=== PATIENT | male | born 1935 | race Caucasian/White ===

== ENCOUNTER 2018-09-22 08:30 | Inpatient (IN) | payer BC ==
[~2018-09-22] VITALS: Ht 172.7 cm; Wt 78.5 kg
[~2018-09-22 08:30] MED LIST: LISI-209 PO; METO25TA3 PO; TRI48 PO
[2018-09-22 08:38] VITALS: BP_SYST 127
[2018-09-22] MEDS ORDERED: NACL 0.9% 1,000 ML IV SCH (08:50)
[2018-09-22 09:10] LABS: BASOPHILS % (AUTO) 0.4 % (0.0-2.0); EOSINOPHILS % (AUTO) 0.3 % (0.0-4.0); HEMATOCRIT 35.2 % (36-54); HEMOGLOBIN 11.7 g/dL (14.0-18.0); LYMPHOCYTES # (AUTO) 1.7 K/uL (1.0-5.5); LYMPHOCYTES % (AUTO) 18.4 % (20.5-51.5); MEAN CORPUSCULAR HEMOGLOBIN 30 pg (27-31); MEAN CORPUSCULAR HGB CONC 33 % (32-36); MEAN CORPUSCULAR VOLUME 92 fL (79.0-98.0); MONOCYTES # (AUTO) 0.8 K/uL (0.0-1.0); MONOCYTES % (AUTO) 8.7 % (1.7-9.3); NEUTROPHILS # (AUTO) 6.8 K/uL (1.8-7.7); NEUTROPHILS % (AUTO) 72.2 % (40.0-70.0); PLATELET COUNT (AUTO) 354 K/uL (130-430); RED BLOOD CELL COUNT(AUTO) 3.84 MIL/uL (4.2-6.2); RED CELL DISTRIBUTION WIDTH 14.5 % (9.0-15.0); WHITE BLOOD COUNT (AUTO) 9.4 K/uL (4.8-10.8)
[2018-09-22 09:21] LABS: ANION GAP 13 (5-15); CALCIUM 9.2 mg/dL (8.4-11.0); CHLORIDE 102 mmol/L (98-107); CREATININE 1.68 mg/dL (0.55-1.30); GLUCOSE 148 mg/dL (70-99); POTASSIUM 4.7 mmol/L (3.5-5.1); SODIUM SERUM 135 mmol/L (136-145); UREA NITROGEN, BLOOD 57 mg/dL (8-21)
[2018-09-22 09:25] LABS: INR 1.2 (0.80-1.20); PROTHROMBIN TIME 12.4 SECS (9.5-12.5)
[2018-09-22 09:26] LABS: ALANINE AMINOTRANSFERASE 17 U/L (12-78); ALBUMIN 3.4 g/dL (3.4-4.8); ASPARTATE AMINOTRANSFERASE 14 U/L (10-37); TOTAL BILIRUBIN 0.4 mg/dL (0.0-1.0)
[2018-09-22] MEDS ORDERED: PANTOPRAZOLE SODIUM 40 MG/VIAL (PROTONIX) IVP ONE (11:00)
[2018-09-22] MEDS ORDERED: SPIR25TA PO (11:08)
[2018-09-22] MEDS ORDERED: CLOP300T2 PO (11:08)
[2018-09-22] MEDS ORDERED: METO50TA7 PO (11:08)
[2018-09-22] MEDS ORDERED: LIP10 PO (11:08)
[2018-09-22] MEDS ORDERED: AMLO5TAB4 PO (11:08)
[2018-09-22] MEDS ORDERED: FENO160 PO (11:08)
[2018-09-22] MEDS ORDERED: ASPI-1155 PO (11:08)
[2018-09-22] MEDS ORDERED: LISI40TA4 PO (11:08)
[2018-09-22] MEDS ORDERED: FINA5TAB3 PO (11:08)
[2018-09-22] MEDS ORDERED: PRO40 PO (11:08)
[2018-09-22 12:03] VITALS: BP_SYST 148
[2018-09-22] MEDS: D5NS 1,000 ML IV SCH ×2 (12:32→22:20)
[2018-09-22] MEDS: PANTOPRAZOLE SODIUM 40 MG in NS 50 ML IV SCH ×3 (12:32→20:24)
[2018-09-22 16:13] LABS: HEMATOCRIT 30.5 % (36-54); HEMOGLOBIN 10.1 g/dL (14.0-18.0)
[2018-09-22 16:54] VITALS: BP_SYST 128
[2018-09-22 20:00] VITALS: BP_SYST 154
[2018-09-22 22:04] LABS: HEMATOCRIT 29.2 % (36-54); HEMOGLOBIN 9.8 g/dL (14.0-18.0)
[2018-09-23] MEDS: PANTOPRAZOLE SODIUM 40 MG in NS 50 ML IV SCH ×5 (01:35→21:41)
[2018-09-23 02:07] LABS: HEMATOCRIT 31.4 % (36-54); HEMOGLOBIN 10.5 g/dL (14.0-18.0)
[2018-09-23 03:54] VITALS: BP_SYST 144
[2018-09-23] MEDS: fentaNYL CITRATE/PF 100 MCG/2 ML AMP ONE ×4 (05:57→07:50)
[2018-09-23] MEDS ORDERED: fentaNYL CITRATE/PF 100 MCG/2 ML AMP ONE (05:57)
[2018-09-23] MEDS ORDERED: MIDAZOLAM HCL 5 MG/5 ML VIAL ONE (05:58)
[2018-09-23] MEDS ORDERED: BENZOCAINE 20% 0.5mL UD SPRAY MM ONE (05:58)
[2018-09-23] MEDS: MIDAZOLAM HCL 5 MG/5 ML VIAL ONE ×5 (05:58→07:54)
[2018-09-23] MEDS ORDERED: SIMETHICONE 40 MG/0.6 ML ML ONE (05:59)
[2018-09-23] MEDS: D5NS 1,000 ML IV SCH ×2 (06:25→17:55)
[2018-09-23 08:50] VITALS: BP_SYST 133
[2018-09-23] MEDS: METOPROLOL SUCCINATE 50 MG TAB.SR.24H (TOPROL XL) PO SCH (08:51)
[2018-09-23 08:59] LABS: HEMATOCRIT 29.8 % (36-54); HEMOGLOBIN 9.9 g/dL (14.0-18.0)
[2018-09-23 11:16] VITALS: BP_SYST 156
[2018-09-23 15:23] VITALS: BP_SYST 144
[2018-09-23 15:24] LABS: HEMATOCRIT 29.1 % (36-54); HEMOGLOBIN 9.5 g/dL (14.0-18.0)
[2018-09-23 20:00] VITALS: BP_SYST 133
[2018-09-23 20:24] LABS: HEMATOCRIT 29.9 % (36-54)
[2018-09-24] VITALS: BP_SYST 142
[2018-09-24] MEDS: PANTOPRAZOLE SODIUM 40 MG in NS 50 ML IV SCH ×2 (02:29→08:15)
[2018-09-24] MEDS: D5NS 1,000 ML IV SCH (02:29)
[2018-09-24 02:37] LABS: HEMATOCRIT 27.8 % (36-54); HEMOGLOBIN 9.2 g/dL (14.0-18.0)
[2018-09-24 07:00] LABS: HEMATOCRIT 27.1 % (36-54); HEMOGLOBIN 9.1 g/dL (14.0-18.0); MEAN CORPUSCULAR VOLUME 92 fL (79.0-98.0); RED BLOOD CELL COUNT(AUTO) 2.96 MIL/uL (4.2-6.2)
[2018-09-24 07:01] LABS: BASOPHILS % (AUTO) 0.4 % (0.0-2.0); EOSINOPHILS # (AUTO) 0.1 K/uL (0.0-0.4); EOSINOPHILS % (AUTO) 1.8 % (0.0-4.0); LYMPHOCYTES # (AUTO) 0.9 K/uL (1.0-5.5); LYMPHOCYTES % (AUTO) 19.4 % (20.5-51.5); MEAN CORPUSCULAR HEMOGLOBIN 31 pg (27-31); MEAN CORPUSCULAR HGB CONC 34 % (32-36); MONOCYTES # (AUTO) 0.5 K/uL (0.0-1.0); MONOCYTES % (AUTO) 11.4 % (1.7-9.3); PLATELET COUNT (AUTO) 236 K/uL (130-430); RED CELL DISTRIBUTION WIDTH 14.7 % (9.0-15.0)
[2018-09-24 07:40] VITALS: BP_SYST 148
[2018-09-24 07:51] LABS: WHITE BLOOD COUNT (AUTO) 4.5 K/uL (4.8-10.8)
[2018-09-24 07:55] LABS: ALANINE AMINOTRANSFERASE 15 U/L (12-78); ALBUMIN 2.4 g/dL (3.4-4.8); ANION GAP 8 (5-15); ASPARTATE AMINOTRANSFERASE 10 U/L (10-37); CALCIUM 8.4 mg/dL (8.4-11.0); CHLORIDE 108 mmol/L (98-107); CREATININE 1.25 mg/dL (0.55-1.30); GLUCOSE 116 mg/dL (70-99); PHOSPHORUS 2.6 mg/dL (2.7-4.5); SODIUM SERUM 135 mmol/L (136-145); TOTAL BILIRUBIN 0.4 mg/dL (0.0-1.0); UREA NITROGEN, BLOOD 19 mg/dL (8-21)
[2018-09-24] MEDS: METOPROLOL SUCCINATE 50 MG TAB.SR.24H (TOPROL XL) PO SCH (09:33)
[2018-09-24] MEDS ORDERED: PRO40 PO (10:13)
[2018-09-24 10:51] VITALS: BP_SYST 148
== END 2018-09-24 11:25 | disposition home or self-care (01) ==
LOC: SED 08:30 → SMU 11:08
PROVIDERS: ADMIT Internal Medicine Hospice and Palliative Medicine; ATTEND Internal Medicine Hospice and Palliative Medicine
PROC: 0DJ08ZZ Inspection of Upper Intestinal Tract, Via Natural or Artificial Opening Endoscopic (ICD-10-PCS; principal; 2018-09-23 08:00)
DX: K20.9 Esophagitis, unspecified (principal); K26.4 Chronic or unspecified duodenal ulcer with hemorrhage; I25.10 Atherosclerotic heart disease of native coronary artery without angina pectoris; I10 Essential (primary) hypertension; Z96.649 Presence of unspecified artificial hip joint; E66.9 Obesity, unspecified; D64.9 Anemia, unspecified; Z79.899 Other long term (current) drug therapy; Z95.5 Presence of coronary angioplasty implant and graft; Z90.49 Acquired absence of other specified parts of digestive tract; Z87.11 Personal history of peptic ulcer disease; Z68.26 Body mass index [BMI] 26.0-26.9, adult
CPT/HCPCS: 36415; 43235; 71045; 80053; 82272; 83735-TC; 84100-TC; 85018-TC; 85025; 85610-TC; 85730-TC; 93005; 96361; 96374; 99285; C9113; J2250; J3010; J7030; J7042

== ENCOUNTER 2021-07-24 17:22 | Inpatient (IN) | payer BC, SELFPAY ==
[~2021-07-24] VITALS: Ht 172.7 cm; Wt 78.9 kg
[~2021-07-24 17:22] MED LIST changes: +AMLO5TAB4 PO; +FENO160 PO; +FINA5TAB3 PO; +LIP10 PO; -LISI-209 PO; +LISI40TA13 PO; -METO25TA3 PO; +METO50TA7 PO; +PRO40 PO; +SPIR25TA PO; -TRI48 PO
[2021-07-24 17:50] VITALS: BP_SYST 100
[2021-07-24] MEDS ORDERED: PANTOPRAZOLE SODIUM 40 MG in NS 50 ML IV ONE (18:00)
[2021-07-24] MEDS ORDERED: PANTOPRAZOLE SODIUM 80 MG in NS 100 ML IV ONE (18:00)
[2021-07-24] MEDS ORDERED: APIX2.5T PO (18:24)
[2021-07-24] MEDS ORDERED: HYDR25TA4 PO (18:24)
[2021-07-24 18:53] LABS: HEMATOCRIT 36.2 % (36-54); HEMOGLOBIN 11.9 g/dL (14.0-18.0); MEAN CORPUSCULAR HEMOGLOBIN 28 pg (27-31); MEAN CORPUSCULAR HGB CONC 33 % (32-36); MEAN CORPUSCULAR VOLUME 86 fL (79.0-98.0); PLATELET COUNT (AUTO) 367 K/uL (130-430); RED BLOOD CELL COUNT(AUTO) 4.19 MIL/uL (4.2-6.2); RED CELL DISTRIBUTION WIDTH 14.6 % (9.0-15.0); WHITE BLOOD COUNT (AUTO) 11.6 K/uL (4.8-10.8)
[2021-07-24 18:59] LABS: ANION GAP 10 (5-15); CALCIUM 7.8 mg/dL (8.4-11.0); CHLORIDE 87 mmol/L (98-107); CREATININE 1.69 mg/dL (0.55-1.30); GLUCOSE 120 mg/dL (70-99); INR 1.6 (0.80-1.20); POTASSIUM 4.1 mmol/L (3.5-5.1); PROTHROMBIN TIME 15.4 SECS (9.5-12.5); SODIUM SERUM 120 mmol/L (136-145); UREA NITROGEN, BLOOD 57 mg/dL (8-21)
[2021-07-24] MEDS ORDERED: PANTOPRAZOLE SODIUM 40 MG/VIAL (PROTONIX) ONE ×3 (18:59→19:26)
[2021-07-24 19:04] LABS: ALANINE AMINOTRANSFERASE 19 U/L (12-78); ASPARTATE AMINOTRANSFERASE 19 U/L (10-37); TOTAL BILIRUBIN 0.5 mg/dL (0.0-1.0)
[2021-07-24] MEDS ORDERED: ACETAMINOPHEN 325 MG TABLET PO PRN (19:45)
[2021-07-24] MEDS ORDERED: ONDANSETRON HCL 4 MG/2 ML VIAL IVP PRN (19:45)
[2021-07-24] MEDS ORDERED: ALBUTEROL SULFATE 0.083% 2.5 MG/3 ML VIAL.NEB INH PRN (19:45)
[2021-07-24] MEDS ORDERED: HYDROcodone/ACETAMIN 5-325 MG TAB (NORCO/ VICODIN) PO PRN (19:45)
[2021-07-24] MEDS ORDERED: MORPHINE 2 MG/ML INJ. SYRINGE IVP PRN (20:00)
[2021-07-24 20:18] VITALS: BP_SYST 131
[2021-07-24 20:43] VITALS: BP_SYST 128
[2021-07-24] MEDS: PANTOPRAZOLE SODIUM 40 MG/VIAL (PROTONIX) IVP SCH (21:15)
[2021-07-24] MEDS: FINASTERIDE 5 MG TABLET (PROSCAR) PO SCH (21:20)
[2021-07-25] VITALS: BP_SYST 125
[2021-07-25 07:49] LABS: ALANINE AMINOTRANSFERASE 23 U/L (12-78); ALBUMIN 2.7 g/dL (3.4-4.8); ASPARTATE AMINOTRANSFERASE 27 U/L (10-37); CALCIUM 8.1 mg/dL (8.4-11.0); CREATININE 1.89 mg/dL (0.55-1.30); GLUCOSE 92 mg/dL (70-99); TOTAL BILIRUBIN 0.9 mg/dL (0.0-1.0); UREA NITROGEN, BLOOD 59 mg/dL (8-21)
[2021-07-25 08:00] VITALS: BP_SYST 136
[2021-07-25 08:13] LABS: ANION GAP 15 (5-15); CHLORIDE 86 mmol/L (98-107); POTASSIUM 4.4 mmol/L (3.5-5.1); SODIUM SERUM 122 mmol/L (136-145)
[2021-07-25] MEDS: ATORVASTATIN 10 MG TABLET PO SCH (08:58)
[2021-07-25] MEDS: PANTOPRAZOLE SODIUM 40 MG/VIAL (PROTONIX) IVP SCH ×2 (08:59→21:35)
[2021-07-25] MEDS: METOPROLOL SUCCINATE 50 MG TAB.SR.24H (TOPROL XL) PO SCH (08:59)
[2021-07-25 09:19] LABS: HEMOGLOBIN 12.2 g/dL (14.0-18.0); RED BLOOD CELL COUNT(AUTO) 4.24 MIL/uL (4.2-6.2)
[2021-07-25 09:20] LABS: BASOPHILS % (AUTO) 0.2 % (0.0-2.0); EOSINOPHILS # (AUTO) 0.1 K/uL (0.0-0.4); EOSINOPHILS % (AUTO) 0.9 % (0.0-4.0); HEMATOCRIT 37.1 % (36-54); LYMPHOCYTES # (AUTO) 1.1 K/uL (1.0-5.5); LYMPHOCYTES % (AUTO) 10.1 % (20.5-51.5); MEAN CORPUSCULAR HEMOGLOBIN 29 pg (27-31); MEAN CORPUSCULAR HGB CONC 33 % (32-36); MEAN CORPUSCULAR VOLUME 87 fL (79.0-98.0); MONOCYTES # (AUTO) 1.4 K/uL (0.0-1.0); NEUTROPHILS # (AUTO) 8.4 K/uL (1.8-7.7); NEUTROPHILS % (AUTO) 75.8 % (40.0-70.0); PLATELET COUNT (AUTO) 299 K/uL (130-430); RED CELL DISTRIBUTION WIDTH 14.3 % (9.0-15.0)
[2021-07-25] MEDS: NACL 0.9% 1,000 ML IV SCH ×2 (11:58→23:59)
[2021-07-25 12:00] VITALS: BP_SYST 120
[2021-07-25] MEDS ORDERED: FENOFIBRATE 160 MG TABLET PO ONE (12:00)
[2021-07-25 16:30] VITALS: BP_SYST 120
[2021-07-25 20:00] VITALS: BP_SYST 126
[2021-07-25] MEDS: FINASTERIDE 5 MG TABLET (PROSCAR) PO SCH (21:33)
[2021-07-26] MEDS ORDERED: MIDAZOLAM HCL 5 MG/5 ML VIAL ONE (07:03)
[2021-07-26] MEDS ORDERED: fentaNYL CITRATE/PF 100 MCG/2 ML AMP ONE (07:03)
[2021-07-26 07:43] LABS: INR 1.6 (0.80-1.20)
[2021-07-26 07:45] LABS: ANION GAP 11 (5-15); CALCIUM 7.3 mg/dL (8.4-11.0); CHLORIDE 94 mmol/L (98-107); CREATININE 1.58 mg/dL (0.55-1.30); GLUCOSE 80 mg/dL (70-99); PHOSPHORUS 3.2 mg/dL (2.7-4.5); POTASSIUM 3.9 mmol/L (3.5-5.1); SODIUM SERUM 128 mmol/L (136-145); THYROID STIMULATING HORMONE 0.39 uIu/mL (0.36-3.74); UREA NITROGEN, BLOOD 48 mg/dL (8-21)
[2021-07-26 08:45] VITALS: BP_SYST 122
[2021-07-26 08:55] LABS: BASOPHILS % (AUTO) 0.1 % (0.0-2.0); EOSINOPHILS % (AUTO) 0.3 % (0.0-4.0); HEMATOCRIT 32.4 % (36-54); HEMOGLOBIN 10.8 g/dL (14.0-18.0); LYMPHOCYTES # (AUTO) 0.7 K/uL (1.0-5.5); LYMPHOCYTES % (AUTO) 7.3 % (20.5-51.5); MEAN CORPUSCULAR HEMOGLOBIN 29 pg (27-31); MEAN CORPUSCULAR HGB CONC 33 % (32-36); MEAN CORPUSCULAR VOLUME 87 fL (79.0-98.0); MONOCYTES % (AUTO) 9.9 % (1.7-9.3); NEUTROPHILS # (AUTO) 8.4 K/uL (1.8-7.7); NEUTROPHILS % (AUTO) 82.4 % (40.0-70.0); PLATELET COUNT (AUTO) 252 K/uL (130-430); RED BLOOD CELL COUNT(AUTO) 3.72 MIL/uL (4.2-6.2); RED CELL DISTRIBUTION WIDTH 14.3 % (9.0-15.0); WHITE BLOOD COUNT (AUTO) 10.3 K/uL (4.8-10.8)
[2021-07-26] MEDS: PANTOPRAZOLE SODIUM 40 MG/VIAL (PROTONIX) IVP SCH ×2 (09:22→21:09)
[2021-07-26] MEDS: FENOFIBRATE 160 MG TABLET PO SCH (09:22)
[2021-07-26] MEDS: ATORVASTATIN 10 MG TABLET PO SCH (09:23)
[2021-07-26] MEDS: METOPROLOL SUCCINATE 50 MG TAB.SR.24H (TOPROL XL) PO SCH (09:23)
[2021-07-26 12:00] VITALS: BP_SYST 106
[2021-07-26 16:00] VITALS: BP_SYST 135
[2021-07-26] MEDS: NACL 0.9% 1,000 ML IV SCH (17:59)
[2021-07-26 20:10] VITALS: BP_SYST 127
[2021-07-26] MEDS: FINASTERIDE 5 MG TABLET (PROSCAR) PO SCH (21:09)
[2021-07-27] VITALS: BP_SYST 109
[2021-07-27 07:13] LABS: BASOPHILS % (AUTO) 0.1 % (0.0-2.0); EOSINOPHILS # (AUTO) 0.1 K/uL (0.0-0.4); EOSINOPHILS % (AUTO) 0.9 % (0.0-4.0); HEMATOCRIT 32.1 % (36-54); HEMOGLOBIN 10.7 g/dL (14.0-18.0); LYMPHOCYTES # (AUTO) 1.1 K/uL (1.0-5.5); MEAN CORPUSCULAR HEMOGLOBIN 29 pg (27-31); MEAN CORPUSCULAR HGB CONC 33 % (32-36); MEAN CORPUSCULAR VOLUME 88 fL (79.0-98.0); MONOCYTES # (AUTO) 0.9 K/uL (0.0-1.0); MONOCYTES % (AUTO) 8.9 % (1.7-9.3); NEUTROPHILS # (AUTO) 8.4 K/uL (1.8-7.7); NEUTROPHILS % (AUTO) 80.1 % (40.0-70.0); PLATELET COUNT (AUTO) 258 K/uL (130-430); RED BLOOD CELL COUNT(AUTO) 3.65 MIL/uL (4.2-6.2); RED CELL DISTRIBUTION WIDTH 14.5 % (9.0-15.0); WHITE BLOOD COUNT (AUTO) 10.5 K/uL (4.8-10.8)
[2021-07-27 07:18] LABS: ALANINE AMINOTRANSFERASE 18 U/L (12-78); ALBUMIN 2.2 g/dL (3.4-4.8); ANION GAP 9 (5-15); ASPARTATE AMINOTRANSFERASE 15 U/L (10-37); CALCIUM 7.5 mg/dL (8.4-11.0); CHLORIDE 94 mmol/L (98-107); CREATININE 1.58 mg/dL (0.55-1.30); GLUCOSE 96 mg/dL (70-99); PHOSPHORUS 2.6 mg/dL (2.7-4.5); POTASSIUM 3.8 mmol/L (3.5-5.1); SODIUM SERUM 125 mmol/L (136-145); TOTAL BILIRUBIN 0.4 mg/dL (0.0-1.0); UREA NITROGEN, BLOOD 45 mg/dL (8-21)
[2021-07-27 08:00] VITALS: BP_SYST 106
[2021-07-27] MEDS ORDERED: PRO40 PO (09:30)
[2021-07-27] MEDS: ATORVASTATIN 10 MG TABLET PO SCH (09:49)
[2021-07-27] MEDS: FENOFIBRATE 160 MG TABLET PO SCH (09:49)
[2021-07-27] MEDS: METOPROLOL SUCCINATE 50 MG TAB.SR.24H (TOPROL XL) PO SCH (09:50)
[2021-07-27] MEDS: NACL 0.9% 1,000 ML IV SCH (09:51)
[2021-07-27] MEDS: PANTOPRAZOLE SODIUM 40 MG/VIAL (PROTONIX) IVP SCH (09:54)
[2021-07-27 12:12] VITALS: BP_SYST 106
[2021-07-27 12:38] VITALS: BP_SYST 130
== END 2021-07-27 13:57 | disposition home or self-care (01) | DRG 378 ==
LOC: SED 17:22 → STU 19:36 → SMU 07-26 11:48
PROVIDERS: ADMIT Internal Medicine Hospice and Palliative Medicine; ATTEND Internal Medicine Hospice and Palliative Medicine
PROC: 0DB78ZX Excision of Stomach, Pylorus, Via Natural or Artificial Opening Endoscopic, Diagnostic (ICD-10-PCS; 2021-07-26)
PROC: 0DB98ZX Excision of Duodenum, Via Natural or Artificial Opening Endoscopic, Diagnostic (ICD-10-PCS; principal; 2021-07-26 07:30)
DX: K26.4 Chronic or unspecified duodenal ulcer with hemorrhage (principal); E87.1 Hypo-osmolality and hyponatremia; E44.0 Moderate protein-calorie malnutrition; N17.9 Acute kidney failure, unspecified; I48.20 Chronic atrial fibrillation, unspecified; I11.0 Hypertensive heart disease with heart failure; D64.9 Anemia, unspecified; D72.829 Elevated white blood cell count, unspecified; E78.5 Hyperlipidemia, unspecified; E83.51 Hypocalcemia; E83.52 Hypercalcemia; K21.9 Gastro-esophageal reflux disease without esophagitis; E88.09 Other disorders of plasma-protein metabolism, not elsewhere classified; I25.10 Atherosclerotic heart disease of native coronary artery without angina pectoris; R73.9 Hyperglycemia, unspecified; I48.91 Unspecified atrial fibrillation; N28.89 Other specified disorders of kidney and ureter; Z20.822 Contact with and (suspected) exposure to COVID-19; I50.9 Heart failure, unspecified; R73.03 Prediabetes; Z79.01 Long term (current) use of anticoagulants; Z79.899 Other long term (current) drug therapy; Z68.26 Body mass index [BMI] 26.0-26.9, adult
CPT/HCPCS: 36415; 43239; 71045; 76770; 80048; 80053; 82533; 82941; 83051; 83605; 83735; 83880; 83930; 83935; 84100; 84443; 84484; 85014; 85025; 85048; 85049-TC; 85610-TC; 85730-TC; 86886; 86900; 86901; 87040; 88305; 88312; 88313; 93005; 96374; 96375; 99285; C9113; G0378; J2250; J3010

== ENCOUNTER 2022-05-21 21:33 | Emergency (ER) | payer BC ==
[~2022-05-21] VITALS: Ht 172.7 cm; Wt 74.8 kg
[~2022-05-21 21:33] MED LIST changes: -AMLO5TAB4 PO; +APIX2.5T PO; -SPIR25TA PO
[2022-05-21 21:40] VITALS: BP_SYST 103
[2022-05-21] MEDS ORDERED: NIRM1TAB PO ×3 (23:10→23:23)
[2022-05-21 23:29] VITALS: BP_SYST 107
== END 2022-05-21 23:29 | disposition home or self-care (01) ==
LOC: SED 21:33
DX: U07.1 COVID-19 (principal); R05.9 Cough, unspecified; R50.9 Fever, unspecified; R53.83 Other fatigue; K21.9 Gastro-esophageal reflux disease without esophagitis; I11.0 Hypertensive heart disease with heart failure; I50.9 Heart failure, unspecified; Z79.899 Other long term (current) drug therapy
CPT/HCPCS: 99283

== ENCOUNTER 2023-09-19 18:24 | Inpatient (IN) | payer BC ==
[~2023-09-19] VITALS: Ht 175.3 cm; Wt 90.7 kg
[~2023-09-19 18:24] MED LIST changes: +FINA-37 PO; -FINA5TAB3 PO; +NIRM1TAB PO
[2023-09-19 18:25] VITALS: BP_SYST 106; PULSE 120; RESP 18; TEMP 98.2; O2SAT 100
[2023-09-19 19:33] LABS: ALANINE AMINOTRANSFERASE 24 U/L (12-78); ALBUMIN 2.3 g/dL (3.4-4.8); ANION GAP 10 (5-15); ASPARTATE AMINOTRANSFERASE 16 U/L (10-37); CALCIUM 7.8 mg/dL (8.4-11.0); CARBON DIOXIDE 28 mmol/L (23-29); CHLORIDE 108 mmol/L (98-107); GLUCOSE 151 mg/dL (74-106); POTASSIUM 4.4 mmol/L (3.5-5.1); SODIUM SERUM 146 mmol/L (136-145); TOTAL BILIRUBIN 0.9 mg/dL (0.0-1.0); TOTAL PROTEIN, SERUM 5.1 g/dL (6.4-8.3); UREA NITROGEN, BLOOD 90 mg/dL (8-21)
[2023-09-19 19:34] LABS: INR 1.6 (0.80-1.20); PROTHROMBIN TIME 16.3 SECS (9.5-12.5)
[2023-09-19 19:35] LABS: BASOPHILS % (AUTO) 0.2 % (0.0-2.0); HEMOGLOBIN 7.3 g/dL (14.0-18.0); LYMPHOCYTES # (AUTO) 1.2 K/uL (1.0-5.5); LYMPHOCYTES % (AUTO) 13.8 % (20.5-51.5); MEAN CORPUSCULAR HEMOGLOBIN 31 pg (27-31); MEAN CORPUSCULAR HGB CONC 34 % (32-36); MEAN CORPUSCULAR VOLUME 94 fL (79.0-98.0); MONOCYTES # (AUTO) 0.7 K/uL (0.0-1.0); MONOCYTES % (AUTO) 8.6 % (1.7-9.3); NEUTROPHILS # (AUTO) 6.7 K/uL (1.8-7.7); NEUTROPHILS % (AUTO) 77.4 % (40.0-70.0); PLATELET COUNT (AUTO) 233 K/uL (130-430); RED BLOOD CELL COUNT(AUTO) 2.34 MIL/uL (4.2-6.2); RED CELL DISTRIBUTION WIDTH 15.4 % (9.0-15.0); WHITE BLOOD COUNT (AUTO) 8.6 K/uL (4.8-10.8)
[2023-09-19 19:36] LABS: BILIRUBIN,DIRECT 0.4 mg/dL (0.0-0.3); CREATINE KINASE, TOTAL 25 U/L (39-308)
[2023-09-19 19:41] LABS: HEMATOCRIT 21.9 % (36-54)
[2023-09-19] MEDS: DILTIAZEM HCL 60 MG TABLET PO ONE (20:00)
[2023-09-19] MEDS: dilTIAZem HCL IVP 5 MG/ML VIAL IVP ONE (20:01)
[2023-09-19] MEDS: NACL 0.9% 1,000 ML IV ONE ×2 (20:02→22:02)
[2023-09-19] MEDS ORDERED: HYDROcodone/ACETAMIN 10-325 MG TAB PO PRN (21:45)
[2023-09-19] MEDS ORDERED: ACETAMINOPHEN 325 MG TABLET PO PRN (21:45)
[2023-09-19] MEDS ORDERED: MORPHINE 2 MG/ML INJ. SYRINGE IVP PRN (21:45)
[2023-09-19] MEDS ORDERED: HYDROcodone/ACETAMIN 5-325 MG TAB (NORCO/ VICODIN) PO PRN (21:45)
[2023-09-19] MEDS ORDERED: IPRATROPIUM BROM 0.5 MG/2.5 ML VIAL.NEB (ATROVENT) INH PRN (21:45)
[2023-09-19 21:55] LABS: BILIRUBIN,URINE NEGATIVE (NEGATIVE); BLOOD, URINE NEGATIVE (NEGATIVE); CLARITY/URINE CLEAR (CLEAR); COLOR,URINE YELLOW (YELLOW); GLUCOSE,URINE NEGATIVE (NEGATIVE); KETONES,URINE NEGATIVE (NEGATIVE); LEUKOCYTE ESTERASE ,URINE NEGATIVE (NEGATIVE); NITRITE, URINE NEGATIVE (NEGATIVE); PROTEIN URINE NEGATIVE (NEGATIVE); UROBILINOGEN,URINE 0.2 (0.2-1.0)
[2023-09-20] VITALS (14 sets, daily range): BP systolic 93–122; PULSE 78–103; RESP 20–28; TEMP 97.2–97.4; O2SAT 5–98
[2023-09-20] MEDS: ONDANSETRON HCL 4 MG/2 ML VIAL IVP PRN (01:20)
[2023-09-20 04:14] LABS: BASOPHILS % (AUTO) 0.2 % (0.0-2.0); LYMPHOCYTES % (AUTO) 10.5 % (20.5-51.5); MEAN CORPUSCULAR HEMOGLOBIN 32 pg (27-31); MEAN CORPUSCULAR HGB CONC 34 % (32-36); MEAN CORPUSCULAR VOLUME 94 fL (79.0-98.0); MONOCYTES # (AUTO) 0.8 K/uL (0.0-1.0); MONOCYTES % (AUTO) 8.3 % (1.7-9.3); NEUTROPHILS # (AUTO) 7.6 K/uL (1.8-7.7); PLATELET COUNT (AUTO) 201 K/uL (130-430); RED BLOOD CELL COUNT(AUTO) 2.06 MIL/uL (4.2-6.2); RED CELL DISTRIBUTION WIDTH 15.4 % (9.0-15.0); WHITE BLOOD COUNT (AUTO) 9.4 K/uL (4.8-10.8)
[2023-09-20] MEDS ORDERED: NOREPINEPHRINE BITARTRATE 4 MG in D5W 246 ML IV PRN (04:15)
[2023-09-20 04:17] LABS: HEMATOCRIT 19.4 % (36-54); HEMOGLOBIN 6.5 g/dL (14.0-18.0)
[2023-09-20] MEDS ORDERED: OCTREOTIDE ACETATE 1,250 MCG in NS 248.75 ML IV SCH (04:30)
[2023-09-20 04:39] LABS: ALANINE AMINOTRANSFERASE 19 U/L (12-78); ALBUMIN 1.8 g/dL (3.4-4.8); ANION GAP 9 (5-15); ASPARTATE AMINOTRANSFERASE 14 U/L (10-37); CARBON DIOXIDE 26 mmol/L (23-29); CHLORIDE 113 mmol/L (98-107); CREATININE 1.55 mg/dL (0.55-1.30); GLUCOSE 135 mg/dL (74-106); POTASSIUM 4.3 mmol/L (3.5-5.1); SODIUM SERUM 148 mmol/L (136-145); TOTAL BILIRUBIN 0.7 mg/dL (0.0-1.0); TOTAL PROTEIN, SERUM 4.1 g/dL (6.4-8.3); UREA NITROGEN, BLOOD 96 mg/dL (8-21)
[2023-09-20] MEDS ORDERED: PANTOPRAZOLE SODIUM 40 MG/VIAL (PROTONIX) ONE ×2 (05:06→09:47)
[2023-09-20] MEDS: PANTOPRAZOLE SODIUM 40 MG in NS 50 ML IV ONE (05:43)
[2023-09-20 06:07] LABS: HEMOGLOBIN A1C 5.79 % (<5.7)
[2023-09-20 08:26] LABS: BASOPHILS % (AUTO) 0.2 % (0.0-2.0); HEMATOCRIT 24.4 % (36-54); HEMOGLOBIN 8.1 g/dL (14.0-18.0); LYMPHOCYTES # (AUTO) 0.8 K/uL (1.0-5.5); LYMPHOCYTES % (AUTO) 8.8 % (20.5-51.5); MEAN CORPUSCULAR HEMOGLOBIN 32 pg (27-31); MEAN CORPUSCULAR HGB CONC 33 % (32-36); MEAN CORPUSCULAR VOLUME 95 fL (79.0-98.0); MONOCYTES # (AUTO) 0.9 K/uL (0.0-1.0); MONOCYTES % (AUTO) 9.6 % (1.7-9.3); NEUTROPHILS # (AUTO) 7.6 K/uL (1.8-7.7); NEUTROPHILS % (AUTO) 81.4 % (40.0-70.0); PLATELET COUNT (AUTO) 192 K/uL (130-430); RED BLOOD CELL COUNT(AUTO) 2.56 MIL/uL (4.2-6.2); WHITE BLOOD COUNT (AUTO) 9.4 K/uL (4.8-10.8)
[2023-09-20] MEDS ORDERED: METOPROLOL SUCCINATE 50 MG TAB.SR.24H (TOPROL XL) PO SCH (09:00)
[2023-09-20 09:16] LABS: INFLUENZA TYPE A Negative (NEGATIVE); INFLUENZA TYPE B NEGATIVE (NEGATIVE)
[2023-09-20] MEDS: PANTOPRAZOLE SODIUM 40 MG in NS 50 ML IV SCH (09:53)
[2023-09-20] MEDS: PHYTONADIONE 10 MG/ML AMP SUBCUT ONE (12:17)
[2023-09-20] MEDS: ATORVASTATIN 10 MG TABLET PO SCH (12:17)
[2023-09-20] MEDS: OCTREOTIDE ACETATE 1,250 MCG in NS 248.75 ML IV SCH (12:18)
[2023-09-20] MEDS: NACL 0.9% 1,000 ML IV SCH (12:21)
[2023-09-20 17:06] LABS: BASOPHILS % (AUTO) 0.2 % (0.0-2.0); EOSINOPHILS % (AUTO) 0.1 % (0.0-4.0); HEMATOCRIT 25.1 % (36-54); HEMOGLOBIN 8.1 g/dL (14.0-18.0); LYMPHOCYTES # (AUTO) 0.9 K/uL (1.0-5.5); LYMPHOCYTES % (AUTO) 7.5 % (20.5-51.5); MEAN CORPUSCULAR HEMOGLOBIN 31 pg (27-31); MEAN CORPUSCULAR HGB CONC 32 % (32-36); MEAN CORPUSCULAR VOLUME 96 fL (79.0-98.0); MONOCYTES # (AUTO) 1.1 K/uL (0.0-1.0); NEUTROPHILS # (AUTO) 9.4 K/uL (1.8-7.7); NEUTROPHILS % (AUTO) 82.2 % (40.0-70.0); PLATELET COUNT (AUTO) 156 K/uL (130-430); RED BLOOD CELL COUNT(AUTO) 2.62 MIL/uL (4.2-6.2); RED CELL DISTRIBUTION WIDTH 15.9 % (9.0-15.0); WHITE BLOOD COUNT (AUTO) 11.5 K/uL (4.8-10.8)
[2023-09-21] VITALS (21 sets, daily range): BP systolic 90–145; PULSE 94–110; RESP 14–23; TEMP 97.2–98.3; O2SAT 93–100
[2023-09-21 04:26] LABS: BASOPHILS % (AUTO) 0.1 % (0.0-2.0); EOSINOPHILS % (AUTO) 0.1 % (0.0-4.0); HEMATOCRIT 23.8 % (36-54); LYMPHOCYTES # (AUTO) 0.7 K/uL (1.0-5.5); LYMPHOCYTES % (AUTO) 7.9 % (20.5-51.5); MEAN CORPUSCULAR HEMOGLOBIN 31 pg (27-31); MEAN CORPUSCULAR HGB CONC 34 % (32-36); MEAN CORPUSCULAR VOLUME 93 fL (79.0-98.0); MONOCYTES # (AUTO) 0.6 K/uL (0.0-1.0); NEUTROPHILS # (AUTO) 7.6 K/uL (1.8-7.7); NEUTROPHILS % (AUTO) 84.9 % (40.0-70.0); PLATELET COUNT (AUTO) 152 K/uL (130-430); RED BLOOD CELL COUNT(AUTO) 2.57 MIL/uL (4.2-6.2); RED CELL DISTRIBUTION WIDTH 16.1 % (9.0-15.0); WHITE BLOOD COUNT (AUTO) 8.9 K/uL (4.8-10.8)
[2023-09-21 04:57] LABS: ALANINE AMINOTRANSFERASE 21 U/L (12-78); ANION GAP 10 (5-15); ASPARTATE AMINOTRANSFERASE 18 U/L (10-37); CALCIUM 7.1 mg/dL (8.4-11.0); CARBON DIOXIDE 22 mmol/L (23-29); CHLORIDE 118 mmol/L (98-107); CREATININE 1.49 mg/dL (0.55-1.30); GLUCOSE 128 mg/dL (74-106); POTASSIUM 4.3 mmol/L (3.5-5.1); SODIUM SERUM 150 mmol/L (136-145); TOTAL BILIRUBIN 1.3 mg/dL (0.0-1.0); TOTAL PROTEIN, SERUM 4.1 g/dL (6.4-8.3); UREA NITROGEN, BLOOD 93 mg/dL (8-21)
[2023-09-21 05:01] LABS: INR 1.5 (0.80-1.20); PROTHROMBIN TIME 15.2 SECS (9.5-12.5)
[2023-09-21 06:16] LABS: CHOLESTEROL 50 mg/dL (<200); HDL CHOLESTEROL 22 mg/dL (>45); TRIGLYCERIDES 66 mg/dL (30-150)
[2023-09-21] MEDS: PANTOPRAZOLE SODIUM 40 MG/VIAL (PROTONIX) IVP SCH (09:43)
[2023-09-21] MEDS: ALBUMIN HUMAN 25% 50 ML IV SCH (09:43)
[2023-09-21] MEDS ORDERED: 0.45% NS 500 ML IV SCH (10:15)
[2023-09-21] MEDS: 0.45% NACL 1,000 ML IV SCH (13:01)
[2023-09-21 18:39] LABS: HEMATOCRIT 23.2 % (36-54); HEMOGLOBIN 7.8 g/dL (14.0-18.0)
[2023-09-22] VITALS (16 sets, daily range): BP systolic 111–124; PULSE 95–112; RESP 16–23; TEMP 96.6–97.9; O2SAT 93–100
[2023-09-22 05:00] LABS: BASOPHILS % (AUTO) 0.2 % (0.0-2.0); EOSINOPHILS % (AUTO) 0.8 % (0.0-4.0); HEMATOCRIT 22.8 % (36-54); HEMOGLOBIN 7.5 g/dL (14.0-18.0); LYMPHOCYTES # (AUTO) 0.7 K/uL (1.0-5.5); LYMPHOCYTES % (AUTO) 11.6 % (20.5-51.5); MEAN CORPUSCULAR HEMOGLOBIN 31 pg (27-31); MEAN CORPUSCULAR HGB CONC 33 % (32-36); MEAN CORPUSCULAR VOLUME 95 fL (79.0-98.0); MONOCYTES # (AUTO) 0.5 K/uL (0.0-1.0); MONOCYTES % (AUTO) 8.4 % (1.7-9.3); NEUTROPHILS # (AUTO) 4.9 K/uL (1.8-7.7); PLATELET COUNT (AUTO) 168 K/uL (130-430); RED CELL DISTRIBUTION WIDTH 16.1 % (9.0-15.0); WHITE BLOOD COUNT (AUTO) 6.2 K/uL (4.8-10.8)
[2023-09-22 05:11] LABS: INR 1.3 (0.80-1.20); PROTHROMBIN TIME 13.7 SECS (9.5-12.5)
[2023-09-22 05:38] LABS: ALANINE AMINOTRANSFERASE 17 U/L (12-78); ALBUMIN 2.6 g/dL (3.4-4.8); ANION GAP 11 (5-15); ASPARTATE AMINOTRANSFERASE 17 U/L (10-37); CALCIUM 8.1 mg/dL (8.4-11.0); CARBON DIOXIDE 22 mmol/L (23-29); CHLORIDE 116 mmol/L (98-107); CREATININE 1.61 mg/dL (0.55-1.30); GLUCOSE 132 mg/dL (74-106); POTASSIUM 4.2 mmol/L (3.5-5.1); SODIUM SERUM 149 mmol/L (136-145); TOTAL BILIRUBIN 1.2 mg/dL (0.0-1.0); TOTAL PROTEIN, SERUM 4.8 g/dL (6.4-8.3); UREA NITROGEN, BLOOD 83 mg/dL (8-21)
[2023-09-22] MEDS: levalbuterol HCL 0.63 MG/3 ML VIAL.NEB INH ONE ×2 (14:01→14:20)
[2023-09-22] MEDS: IPRATROPIUM BROM 0.5 MG/2.5 ML VIAL.NEB (ATROVENT) INH ONE (14:01)
[2023-09-22] MEDS: IPRATROPIUM BROM 0.5 MG/2.5 ML VIAL.NEB (ATROVENT) INH SCH (19:31)
[2023-09-22] MEDS: levalbuterol HCL 0.63 MG/3 ML VIAL.NEB INH SCH (19:31)
[2023-09-22] MEDS ORDERED: MENTHOL/ZINC OXIDE 113 GM OINT. TP PRN (20:00)
[2023-09-22] MEDS: NYSTATIN 15 GM TOPICAL POWDER TP SCH (21:36)
[2023-09-23] VITALS (7 sets, daily range): BP systolic 95–116; PULSE 99–104; RESP 19–22; TEMP 97.2–97.8; O2SAT 97–99
[2023-09-23 05:02] LABS: BASOPHILS % (AUTO) 0.2 % (0.0-2.0); EOSINOPHILS # (AUTO) 0.1 K/uL (0.0-0.4); EOSINOPHILS % (AUTO) 1.8 % (0.0-4.0); HEMATOCRIT 23.9 % (36-54); HEMOGLOBIN 7.9 g/dL (14.0-18.0); LYMPHOCYTES # (AUTO) 0.8 K/uL (1.0-5.5); LYMPHOCYTES % (AUTO) 12.5 % (20.5-51.5); MEAN CORPUSCULAR HEMOGLOBIN 32 pg (27-31); MEAN CORPUSCULAR HGB CONC 33 % (32-36); MEAN CORPUSCULAR VOLUME 96 fL (79.0-98.0); MONOCYTES # (AUTO) 0.6 K/uL (0.0-1.0); MONOCYTES % (AUTO) 9.3 % (1.7-9.3); NEUTROPHILS # (AUTO) 4.9 K/uL (1.8-7.7); NEUTROPHILS % (AUTO) 76.2 % (40.0-70.0); PLATELET COUNT (AUTO) 204 K/uL (130-430); RED BLOOD CELL COUNT(AUTO) 2.48 MIL/uL (4.2-6.2); RED CELL DISTRIBUTION WIDTH 16.2 % (9.0-15.0); WHITE BLOOD COUNT (AUTO) 6.5 K/uL (4.8-10.8)
[2023-09-23 05:25] LABS: ALANINE AMINOTRANSFERASE 17 U/L (12-78); ALBUMIN 2.6 g/dL (3.4-4.8); ANION GAP 11 (5-15); ASPARTATE AMINOTRANSFERASE 12 U/L (10-37); CALCIUM 8.2 mg/dL (8.4-11.0); CARBON DIOXIDE 22 mmol/L (23-29); CHLORIDE 113 mmol/L (98-107); CREATININE 1.72 mg/dL (0.55-1.30); GLUCOSE 132 mg/dL (74-106); POTASSIUM 3.7 mmol/L (3.5-5.1); SODIUM SERUM 146 mmol/L (136-145); TOTAL PROTEIN, SERUM 5.1 g/dL (6.4-8.3); UREA NITROGEN, BLOOD 74 mg/dL (8-21)
== END 2023-09-23 11:50 | disposition short-term general hospital (02) | DRG 377 ==
LOC: SED 18:24 → STU 21:44 → SIC 21:48 → STU 09-23 06:15
PROVIDERS: ADMIT Family Medicine; ATTEND Family Medicine
PROC: 30233N1 Transfusion of Nonautologous Red Blood Cells into Peripheral Vein, Percutaneous Approach (ICD-10-PCS; 2023-09-19)
PROC: 30233K1 Transfusion of Nonautologous Frozen Plasma into Peripheral Vein, Percutaneous Approach (ICD-10-PCS; 2023-09-20)
PROC: 0W9B3ZZ Drainage of Left Pleural Cavity, Percutaneous Approach (ICD-10-PCS; principal; 2023-09-23)
DX: K92.2 Gastrointestinal hemorrhage, unspecified (principal); J96.01 Acute respiratory failure with hypoxia; R57.8 Other shock; I31.39 Other pericardial effusion (noninflammatory); D62 Acute posthemorrhagic anemia; N17.9 Acute kidney failure, unspecified; E87.20 Acidosis, unspecified; E87.0 Hyperosmolality and hypernatremia; I42.9 Cardiomyopathy, unspecified; I31.4 Cardiac tamponade; I25.10 Atherosclerotic heart disease of native coronary artery without angina pectoris; E86.1 Hypovolemia; Z20.822 Contact with and (suspected) exposure to COVID-19; I12.9 Hypertensive chronic kidney disease with stage 1 through stage 4 chronic kidney disease, or unspecified chronic kidney disease; N18.9 Chronic kidney disease, unspecified; I48.91 Unspecified atrial fibrillation; E78.5 Hyperlipidemia, unspecified; Z79.01 Long term (current) use of anticoagulants
CPT/HCPCS: 32555; 36415; 70450-TC; 71045; 80048; 80053; 80061; 80076; 81001; 81003; 82272; 82550; 83037; 83605; 83690; 83735; 83880; 84484; 85018; 85025; 85610; 85730; 86886; 86900; 86901; 86920; 87081; 93005; 93306; 93880; 94640; 94760; 97110-GP; 97116-GP; 97163-GP; 97530-GP; 99285; C9113; G0378; J2405; J3430; J3490; J7050; J7614; P9021; P9046; P9059

== ENCOUNTER 2023-11-09 16:54 | Inpatient (IN) | payer BC ==
[~2023-11-09] VITALS: Ht 172.7 cm; Wt 75.4 kg
[~2023-11-09 16:54] MED LIST changes: -FENO160 PO; -FINA-37 PO; -NIRM1TAB PO; -PRO40 PO
[2023-11-09 17:01] VITALS: BP_SYST 84; PULSE 57; RESP 17; TEMP 97; O2SAT 95
[2023-11-09 17:28] LABS: BASOPHILS % (AUTO) 0.4 % (0.0-2.0); EOSINOPHILS # (AUTO) 0.1 K/uL (0.0-0.4); EOSINOPHILS % (AUTO) 1.5 % (0.0-4.0); HEMATOCRIT 25.6 % (36-54); HEMOGLOBIN 8.8 g/dL (14.0-18.0); LYMPHOCYTES # (AUTO) 1.2 K/uL (1.0-5.5); LYMPHOCYTES % (AUTO) 23.3 % (20.5-51.5); MEAN CORPUSCULAR HEMOGLOBIN 31 pg (27-31); MEAN CORPUSCULAR HGB CONC 34 % (32-36); MEAN CORPUSCULAR VOLUME 90 fL (79.0-98.0); MONOCYTES # (AUTO) 0.8 K/uL (0.0-1.0); MONOCYTES % (AUTO) 15.2 % (1.7-9.3); NEUTROPHILS # (AUTO) 3.2 K/uL (1.8-7.7); NEUTROPHILS % (AUTO) 59.6 % (40.0-70.0); PLATELET COUNT (AUTO) 217 K/uL (130-430); RED BLOOD CELL COUNT(AUTO) 2.83 MIL/uL (4.2-6.2); RED CELL DISTRIBUTION WIDTH 18.7 % (9.0-15.0); WHITE BLOOD COUNT (AUTO) 5.3 K/uL (4.8-10.8)
[2023-11-09 17:44] LABS: INR 1.4 (0.80-1.20); PROTHROMBIN TIME 14.3 SECS (9.5-12.5)
[2023-11-09 17:58] LABS: ANION GAP 9 (5-15); CARBON DIOXIDE 27 mmol/L (23-29); CHLORIDE 98 mmol/L (98-107); GLUCOSE 107 mg/dL (74-106); POTASSIUM 4.4 mmol/L (3.5-5.1); SODIUM SERUM 134 mmol/L (136-145); UREA NITROGEN, BLOOD 76 mg/dL (8-21)
[2023-11-09] MEDS ORDERED: FUROSEMIDE 40 MG/4 ML VIAL IVP ONE (18:45)
[2023-11-09] MEDS: PANTOPRAZOLE SODIUM 40 MG/VIAL (PROTONIX) IVP ONE (19:01)
[2023-11-09] MEDS: FUROSEMIDE 20 MG/2 ML VIAL IVP ONE ×2 (19:03→19:04)
[2023-11-09] MEDS ORDERED: FAMO20TA8 PO (19:06)
[2023-11-09] MEDS ORDERED: AMIO200T68 PO (19:06)
[2023-11-09] MEDS ORDERED: FURO40TA5 PO (19:06)
[2023-11-09] MEDS ORDERED: POTA-360 PO (19:06)
[2023-11-09] MEDS ORDERED: TAMS0.4C96 PO (19:06)
[2023-11-09 21:18] VITALS: BP_SYST 117; PULSE 65; RESP 18; TEMP 97.7
[2023-11-09] MEDS ORDERED: ALBUTEROL SULFATE 0.083% 2.5 MG/3 ML VIAL.NEB INH PRN (22:30)
[2023-11-09] MEDS ORDERED: HYDROcodone/ACETAMIN 5-325 MG TAB (NORCO/ VICODIN) PO PRN (22:30)
[2023-11-09] MEDS ORDERED: MORPHINE 4 MG INJ. 4 MG/ML VIAL IVP PRN (22:30)
[2023-11-09] MEDS ORDERED: ONDANSETRON HCL 4 MG/2 ML VIAL IVP PRN (22:30)
[2023-11-09] MEDS ORDERED: HYDROcodone/ACETAMIN 10-325 MG TAB PO PRN (22:30)
[2023-11-09] MEDS ORDERED: ACETAMINOPHEN 325 MG TABLET PO PRN (22:30)
[2023-11-09 22:36] VITALS: BP_SYST 117; PULSE 65; O2SAT 96
[2023-11-09] MEDS ORDERED: METO5TAB9 PO (22:38)
[2023-11-09] MEDS ORDERED: CEPH250C PO (22:38)
[2023-11-09] MEDS ORDERED: MUPI15CR12 TP (22:38)
[2023-11-10] VITALS (9 sets, daily range): BP systolic 96–126; PULSE 60–71; RESP 16–18; TEMP 97.1–98.6; O2SAT 95–97
[2023-11-10 05:31] LABS: BASOPHILS % (AUTO) 0.5 % (0.0-2.0); EOSINOPHILS # (AUTO) 0.2 K/uL (0.0-0.4); EOSINOPHILS % (AUTO) 2.8 % (0.0-4.0); HEMATOCRIT 26.7 % (36-54); LYMPHOCYTES # (AUTO) 1.2 K/uL (1.0-5.5); LYMPHOCYTES % (AUTO) 18.4 % (20.5-51.5); MEAN CORPUSCULAR HEMOGLOBIN 31 pg (27-31); MEAN CORPUSCULAR HGB CONC 34 % (32-36); MEAN CORPUSCULAR VOLUME 91 fL (79.0-98.0); MONOCYTES # (AUTO) 0.9 K/uL (0.0-1.0); MONOCYTES % (AUTO) 13.4 % (1.7-9.3); NEUTROPHILS # (AUTO) 4.3 K/uL (1.8-7.7); NEUTROPHILS % (AUTO) 64.9 % (40.0-70.0); PLATELET COUNT (AUTO) 226 K/uL (130-430); RED BLOOD CELL COUNT(AUTO) 2.94 MIL/uL (4.2-6.2); RED CELL DISTRIBUTION WIDTH 18.1 % (9.0-15.0); WHITE BLOOD COUNT (AUTO) 6.6 K/uL (4.8-10.8)
[2023-11-10 06:08] LABS: ALBUMIN 2.1 g/dL (3.4-4.8); ANION GAP 12 (5-15); CARBON DIOXIDE 25 mmol/L (23-29); CHLORIDE 100 mmol/L (98-107); CREATININE 2.17 mg/dL (0.55-1.30); GLUCOSE 130 mg/dL (74-106); POTASSIUM 3.5 mmol/L (3.5-5.1); SODIUM SERUM 137 mmol/L (136-145); TOTAL BILIRUBIN 0.6 mg/dL (0.0-1.0); TOTAL PROTEIN, SERUM 5.6 g/dL (6.4-8.3); UREA NITROGEN, BLOOD 74 mg/dL (8-21)
[2023-11-10] MEDS: PANTOPRAZOLE SODIUM 40 MG/VIAL (PROTONIX) IVP SCH (09:16)
[2023-11-10] MEDS ORDERED: APIXABAN 2.5 MG TABLET PO SCH (10:00)
[2023-11-10] MEDS ORDERED: cephALEXin 250 MG CAPSULE PO SCH ×2 (10:00→13:00)
[2023-11-10 10:47] LABS: THYROID STIMULATING HORMONE 1.49 uIu/mL (0.34-4.82)
[2023-11-10] MEDS ORDERED: FAMOTIDINE 20 MG TABLET PO SCH ×2 (11:00→21:00)
[2023-11-10] MEDS: cephALEXin 250 MG CAPSULE PO ONE (11:59)
[2023-11-10] MEDS: FAMOTIDINE 20 MG TABLET PO ONE (11:59)
[2023-11-10] MEDS: TAMSULOSIN HCL 0.4 MG CAP PO ONE (11:59)
[2023-11-10] MEDS: NACL 0.9% 1,000 ML IV ONE (12:00)
[2023-11-10] MEDS: APIXABAN 2.5 MG TABLET PO ONE (12:11)
[2023-11-10] MEDS ORDERED: cephALEXin 500 MG CAPSULE PO SCH (17:00)
[2023-11-10] MEDS: cefTRIAXone 1 GM in D5W 50 ML IV SCH (18:26)
[2023-11-10] MEDS ORDERED: MUPIROCIN CALCIUM 15 GM TP SCH (21:00)
[2023-11-10] MEDS: APIXABAN 2.5 MG TABLET PO SCH (21:27)
[2023-11-10] MEDS: MUPIROCIN 2% TOPICAL OINTMENT 22 GM TP SCH (21:29)
[2023-11-10 23:11] LABS: ALANINE AMINOTRANSFERASE 17 U/L (12-78); ASPARTATE AMINOTRANSFERASE 16 U/L (10-37)
[2023-11-10] MEDS: MELATONIN 3 MG TABLET PO PRN (23:51)
[2023-11-11] VITALS: BP_SYST 94; PULSE 75; RESP 18; TEMP 98.9; O2SAT 96
[2023-11-11 05:40] LABS: BASOPHILS % (AUTO) 0.3 % (0.0-2.0); EOSINOPHILS # (AUTO) 0.1 K/uL (0.0-0.4); EOSINOPHILS % (AUTO) 1.2 % (0.0-4.0); HEMATOCRIT 28.2 % (36-54); HEMOGLOBIN 9.3 g/dL (14.0-18.0); LYMPHOCYTES # (AUTO) 1.4 K/uL (1.0-5.5); LYMPHOCYTES % (AUTO) 16.8 % (20.5-51.5); MEAN CORPUSCULAR HEMOGLOBIN 30 pg (27-31); MEAN CORPUSCULAR HGB CONC 33 % (32-36); MEAN CORPUSCULAR VOLUME 92 fL (79.0-98.0); MONOCYTES # (AUTO) 1.3 K/uL (0.0-1.0); MONOCYTES % (AUTO) 16.4 % (1.7-9.3); NEUTROPHILS # (AUTO) 5.3 K/uL (1.8-7.7); NEUTROPHILS % (AUTO) 65.3 % (40.0-70.0); PLATELET COUNT (AUTO) 236 K/uL (130-430); RED BLOOD CELL COUNT(AUTO) 3.07 MIL/uL (4.2-6.2); RED CELL DISTRIBUTION WIDTH 18.6 % (9.0-15.0); WHITE BLOOD COUNT (AUTO) 8.1 K/uL (4.8-10.8)
[2023-11-11 06:21] LABS: ALANINE AMINOTRANSFERASE 14 U/L (12-78); ALBUMIN 2.2 g/dL (3.4-4.8); ANION GAP 8 (5-15); ASPARTATE AMINOTRANSFERASE 12 U/L (10-37); CALCIUM 8.1 mg/dL (8.4-11.0); CARBON DIOXIDE 26 mmol/L (23-29); CHLORIDE 100 mmol/L (98-107); CREATININE 1.91 mg/dL (0.55-1.30); GLUCOSE 118 mg/dL (74-106); PHOSPHORUS 4.3 mg/dL (2.7-4.5); POTASSIUM 4.2 mmol/L (3.5-5.1); SODIUM SERUM 134 mmol/L (136-145); TOTAL BILIRUBIN 0.7 mg/dL (0.0-1.0); UREA NITROGEN, BLOOD 70 mg/dL (8-21)
[2023-11-11 08:00] VITALS: O2SAT 95
[2023-11-11 08:14] VITALS: BP_SYST 110; PULSE 74; RESP 18; TEMP 97.4; O2SAT 95
[2023-11-11] MEDS: TAMSULOSIN HCL 0.4 MG CAP PO SCH (08:49)
[2023-11-11] MEDS: ATORVASTATIN 10 MG TABLET PO SCH (08:51)
[2023-11-11 10:01] LABS: BILIRUBIN,URINE NEGATIVE (NEGATIVE); BLOOD, URINE NEGATIVE (NEGATIVE); CLARITY/URINE CLEAR (CLEAR); COLOR,URINE YELLOW (YELLOW); GLUCOSE,URINE NEGATIVE (NEGATIVE); KETONES,URINE NEGATIVE (NEGATIVE); LEUKOCYTE ESTERASE ,URINE NEGATIVE (NEGATIVE); NITRITE, URINE NEGATIVE (NEGATIVE); PROTEIN URINE NEGATIVE (NEGATIVE); UROBILINOGEN,URINE 0.2 (0.2-1.0)
[2023-11-11] MEDS ORDERED: METO-304 PO (12:00)
[2023-11-11 12:10] VITALS: BP_SYST 106; PULSE 72; RESP 18; TEMP 97.4
[2023-11-11 14:33] VITALS: BP_SYST 106; PULSE 72; RESP 18; TEMP 97.4; O2SAT 96
== END 2023-11-11 15:55 | disposition home health service (06) | DRG 683 ==
LOC: SED 16:54 → STU 19:07
PROVIDERS: ADMIT Family Medicine; ATTEND Family Medicine
DX: N17.9 Acute kidney failure, unspecified (principal); I48.20 Chronic atrial fibrillation, unspecified; J90 Pleural effusion, not elsewhere classified; L03.115 Cellulitis of right lower limb; I95.2 Hypotension due to drugs; K21.9 Gastro-esophageal reflux disease without esophagitis; I12.9 Hypertensive chronic kidney disease with stage 1 through stage 4 chronic kidney disease, or unspecified chronic kidney disease; N40.0 Benign prostatic hyperplasia without lower urinary tract symptoms; E78.00 Pure hypercholesterolemia, unspecified; D63.1 Anemia in chronic kidney disease; N18.32 Chronic kidney disease, stage 3b; E78.5 Hyperlipidemia, unspecified; E03.9 Hypothyroidism, unspecified; T46.4X5A Adverse effect of angiotensin-converting-enzyme inhibitors, initial encounter; Y92.89 Other specified places as the place of occurrence of the external cause; Z79.01 Long term (current) use of anticoagulants; Z79.899 Other long term (current) drug therapy; T46.2X5A Adverse effect of other antidysrhythmic drugs, initial encounter
CPT/HCPCS: 36415; 71045; 80048; 80053; 81001; 81003; 83605; 83735; 83880; 84100; 84439; 84443; 84484; 85025; 85610; 85730; 87040; 87070; 87075; 87186; 93005; 93306; 93970; 94070; 94760; 96374; 96375; 99285; G0378; J0696; J1940; J2470; J7060